=== PATIENT | male | born 1950 | race Two or more races ===

== ENCOUNTER 2021-06-30 22:27 | Inpatient (IN) | payer OTHER ==
[~2021-06-30] VITALS: Ht 188 cm; Wt 86.2 kg
--- NOTE | 2021-06-30 22:31 | NUR ---
PT BIBRA FROM HOME C/O FEVER AND "ALTERED." PLACED IN BED 8 ON MOLD BURNER AND PULSE OX. AWAITING ER MD AT BEDSIDE FOR EVAL AND ORDERS. LINE ESTABLISHED, BLOOD DRAW, AND SENT TO LAB.
[2021-06-30] MEDS ORDERED: ACETAMINOPHEN ES 500 MG TABLET ONE (22:34)
--- NOTE | 2021-06-30 22:56 | NUR ---
COLLECTED BLOOD CULTURES, SENT TO LAB.
--- NOTE | 2021-06-30 22:56 | NUR ---
AWAITING FOR PT TO PROVIDE URINE SAMPLE.
[2021-06-30] MEDS ORDERED: VANCOMYCIN 1 GM VIAL ONE (22:57)
[2021-06-30] MEDS ORDERED: CEFEPIME 1 GM VIAL ONE (22:57)
[2021-06-30] MEDS ORDERED: IV NS 0.9% 1,000 ML BAG IV ONE (23:00)
[2021-06-30] MEDS ORDERED: ACETAMINOPHEN ES 500 MG TABLET PO ONE (23:00)
[2021-06-30] MEDS ORDERED: CEFEPIME 1 GM in IV D5W 50 ML IV ONE (23:00)
[2021-06-30] MEDS ORDERED: VANCOMYCIN 1 GM in IV D5W 250 ML IV ONE (23:00)
[2021-06-30 23:07] LABS: BASOPHILS % (AUTO) 0.4 % (0.0-2.0); CALCIUM, SERUM 9.2 mg/dL (8.5-10.1); CARBON DIOXIDE 23 mmol/L (21-32); CHLORIDE 100 mmol/L (98-107); CREATININE 1.5 mg/dL (0.6-1.3); EOSINOPHILS % (AUTO) 0.1 % (0.0-6.0); GLUCOSE 114 mg/dL (74-106); HEMATOCRIT 40 % (39-51); HEMOGLOBIN 13.6 g/dL (13.5-17.5); LYMPHOCYTES # (AUTO) 0.6 K/uL (0.8-4.8); LYMPHOCYTES % (AUTO) 15.4 % (20.0-44.0); MEAN CORPUSCULAR HGB CONC 34 g/dl (31.0-36.0); MEAN CORPUSCULAR VOLUME 98 fL (80-96); MONOCYTES # (AUTO) 0.1 K/uL (0.1-1.30); MONOCYTES % (AUTO) 1.6 % (2.0-12.0); NEUTROPHILS # (AUTO) 3.3 K/uL (1.8-8.9); NEUTROPHILS % (AUTO) 82.5 % (43.0-81.0); PLATELET COUNT (AUTO) 142 K/uL (150-450); POTASSIUM 3.7 mmol/L (3.5-5.1); RED BLOOD CELL COUNT(AUTO) 4.05 MIL/uL (4.5-6.0); SODIUM SERUM 137 mmol/L (136-145); UREA NITROGEN, BLOOD 16 mg/dL (7-18)
[2021-06-30 23:12] LABS: ALANINE AMINOTRANSFERASE 29 U/L (12-78); ALBUMIN 3.9 g/dL (3.4-5.0); ALKALINE PHOSPHATASE 64 U/L (46-116); ASPARTATE AMINOTRANSFERASE 19 U/L (15-37); BILIRUBIN,DIRECT 0.2 mg/dL (0.0-0.2); BILIRUBIN,TOTAL 0.9 mg/dL (0.2-1.0); TOTAL PROTEIN, SERUM 7.2 g/dL (6.4-8.2)
[2021-06-30 23:13] LABS: ACETAMINOPHEN < 2 ug/ml (10-30)
--- NOTE | 2021-06-30 23:16 | NUR ---
LACTIC 2.7
[2021-06-30 23:18] LABS: MAGNESIUM 1.6 mg/dL (1.8-2.4)
[2021-06-30] MEDS ORDERED: ENOXAPARIN SODIUM 80 MG/0.8 ML DISP.SYRIN SQ ONE ×2 (23:19→23:30)
[2021-06-30] MEDS ORDERED: BENZOIN COMPOUND TINCT 60 ML BOTTLE ONE (23:22)
[2021-06-30] MEDS ORDERED: ENOXAPARIN SODIUM 60 MG/0.6 ML DISP.SYRIN SQ ONE (23:25)
[2021-06-30] MEDS ORDERED: ENOXAPARIN SODIUM 30 MG/0.3 ML DISP.SYRIN ONE (23:25)
[2021-06-30 23:29] LABS: SERUM AMMONIA 16 umol/L (11-32)
[2021-06-30 23:34] LABS: BILIRUBIN,URINE Negative (NEGATIVE); COLOR,URINE YELLOW (YELLOW); LEUKOCYTE ESTERASE ,URINE Large (NEGATIVE); NITRITE, URINE Negative (NEGATIVE); PROTEIN,URINE Trace mg/dl (NEGATIVE); UGLUCOSE Negative (NEGATIVE); UROBILINOGEN,URINE 0.2 EU/dL (0.2)
[2021-06-30 23:41] LABS: THYROID STIMULATING HORMONE 0.996 uIU/mL (0.358-3.74)
[2021-06-30 23:43] LABS: BACTERIA,URINE Moderate /HPF (None Seen); WBC,URINE 81-100 /HPF (0-3)
[2021-06-30 23:44] LABS: SQUAMOUS EPITHELIAL CELL,UR Few /HPF (None Seen)
[2021-06-30 23:55] LABS: ALCOHOL, BLOOD < 3 mg/dL (0-0)
[2021-07-01] VITALS (67 sets, daily range): BP systolic 78–168; BP diastolic 43–94
[2021-07-01] MEDS ORDERED: IV NS 0.9% 2,000 ML IV ONE
[2021-07-01] MEDS ORDERED: ENOXAPARIN SODIUM 60 MG/0.6 ML DISP.SYRIN SQ ONE
--- NOTE | 2021-07-01 00:35 | NUR ---
TROPONIN 2.381
[2021-07-01] MEDS ORDERED: NOREPINEPHRINE 4 MG/4 ML AMPUL IV ONE (00:49)
[2021-07-01] MEDS ORDERED: NOREPINEPHRINE 8 MG in IV NS 0.9% 250 ML IV ONE (01:00)
[2021-07-01] MEDS ORDERED: OXYC-128 PO ×2 (01:19)
[2021-07-01] MEDS ORDERED: TRAZ-257 PO (01:19)
[2021-07-01] MEDS ORDERED: NAPR-1009 PO (01:19)
[2021-07-01] MEDS ORDERED: LISI-768 PO (01:19)
[2021-07-01] MEDS ORDERED: BUPR100T6 PO (01:19)
[2021-07-01] MEDS ORDERED: CEFP100T9 PO (01:19)
[2021-07-01] MEDS ORDERED: CYAN-51 PO (01:19)
[2021-07-01] MEDS ORDERED: ASPI-1169 PO (01:19)
[2021-07-01] MEDS ORDERED: BUSP10TA3 PO (01:19)
[2021-07-01] MEDS ORDERED: ROSU10TA2 PO (01:19)
--- NOTE | 2021-07-01 01:28 | NUR ---
SPOKE TO THE PT'S DAUGHTER AND , UPDATED THEM WITH PLAN OF CARE. AWARE PT WILL BE STAYING IN [facility] ICU.
--- NOTE | 2021-07-01 01:29 | NUR ---
PT REMAINS ON LOG BRANDER AND PULSE OX. DENIES ANY PAIN. BP IMPROVING.
--- NOTE | 2021-07-01 01:37 | NUR ---
LUIS LEONG AT BEDSIDE FOR CENTRAL LINE PLACEMENT.
--- NOTE | 2021-07-01 02:07 | NUR ---
REPORT GIVEN TO RN FOR DEANDRA. PT WILL BE TRANSFERED.
--- NOTE | 2021-07-01 02:40 | NUR ---
SUMAN ALONZO DNP OKAY WITH PT TO BE BROUGHT TO ICU. PT WILL BE TRANSFERED.
--- NOTE | 2021-07-01 02:45 | NUR ---
RECEIVED PT FROM ER VIA [facility] ON ROOM AIR NO SIGN OF RESPIRATORY DISTRESS, PT IS AWAKE AA/O X4, SAFELY TRANSFER FROM RPECK TO BED PT ABLE TO HELP IN TRANSFERRING, HOOKED TO MONITOR WITH READING SINUS RHYTHM V/S CHECKED AND RECORDED, HEAD TO TOE ASSESSMENT DONE ADMISSION ASSESSMENT DONE, PT WISH TO BE FULL CODE, PT HAVE RIJ 3L CATHETER WITH ONGOING LEVOPHED @ 0.3 MCG/KG/MIN PT HAVE RAC#20 AND LFA#20 IV, PATENT AND FLUSHED, BED ON LOWEST POSITION AND LOCKED SIDE RAILS U X2 CALL LIGHT WITHIN REACH WILL CONT TO MONITOR THE PT
[2021-07-01] MEDS: NOREPINEPHRINE 8 MG in IV NS 0.9% 242 ML IV PRN ×2 (03:00→05:55)
[2021-07-01] MEDS ORDERED: ACETAMINOPHEN 325 MG TABLET PO PRN (03:30)
[2021-07-01] MEDS ORDERED: ZOLPIDEM TARTRATE 5 MG TABLET PO PRN (03:30)
[2021-07-01] MEDS ORDERED: Z GUARD REMEDY 2 OZ OINT TP PRN (03:30)
[2021-07-01] MEDS ORDERED: NOREPINEPHRINE 8 MG in IV NS 0.9% 242 ML IV PRN (03:30)
[2021-07-01] MEDS ORDERED: ONDANSETRON HCL/PF 4 MG/2 ML VIAL IVP PRN (03:30)
[2021-07-01] MEDS ORDERED: TRAZODONE 50 MG TABLET PO PRN (03:30)
[2021-07-01] MEDS: IV NS 0.9% 1,000 ML IV PRN ×2 (03:51→16:30)
[2021-07-01 04:19] LABS: BASOPHILS % (AUTO) 0.1 % (0.0-2.0); HEMATOCRIT 37 % (39-51); HEMOGLOBIN 12.2 g/dL (13.5-17.5); LYMPHOCYTES # (AUTO) 0.9 K/uL (0.8-4.8); LYMPHOCYTES % (AUTO) 2.8 % (20.0-44.0); MEAN CORPUSCULAR HGB CONC 33 g/dl (31.0-36.0); MEAN CORPUSCULAR VOLUME 100 fL (80-96); MONOCYTES # (AUTO) 1.8 K/uL (0.1-1.30); MONOCYTES % (AUTO) 5.6 % (2.0-12.0); NEUTROPHILS # (AUTO) 29.5 K/uL (1.8-8.9); NEUTROPHILS % (AUTO) 91.5 % (43.0-81.0); PLATELET COUNT (AUTO) 151 K/uL (150-450); RED BLOOD CELL COUNT(AUTO) 3.73 MIL/uL (4.5-6.0)
[2021-07-01 04:27] LABS: WHITE BLOOD COUNT (AUTO) 32.3 K/uL (4.3-11.0)
--- NOTE | 2021-07-01 04:34 | NUR ---
HEPARIN DRIP NOT STARTED YET BECAUSSE LOVENOX WAS ADMINISTERED ON 06/30 @ 8864 AND PER PROTOCOL HEPARIN DRIP CAN BE STARTED 12HR AFTER LOVENOX ADMINISTRATION PHARMACY CODI AND CHARGE NURSE AWARE
[2021-07-01 04:39] LABS: BAND % (MANUAL) 23 % (0.0-5.0); NEUTROPHILS % (MANUAL) 71 (42-76)
[2021-07-01 04:40] LABS: LYMPHOCYTES % (MANUAL) 3 % (16-48); MONOCYTES % (MANUAL) 3 % (0-11.0)
[2021-07-01 04:54] LABS: THYROID STIMULATING HORMONE 0.515 uIU/mL (0.358-3.74)
[2021-07-01 04:55] LABS: ABG BASE EXCESS -2.5 mmol/L; ABG OXYGEN SATURATION 96.6 % (92.0-98.5); ABG PCO2 35.4 mmHg (35.0-45.0); ABG PH 7.404 (7.350-7.450); ABG PO2 80.5 mmHg (75.0-100.0); AaDO2 26.8 mmHg; COHb 0.8 % (0.5-1.5); MetHb 0.2 % (0.0-1.5); O2Hb 95.6 % (94.0-97.0); SITE, ABG Right Radial; VENT MODE, BG room air
[2021-07-01 05:22] LABS: ALANINE AMINOTRANSFERASE 31 U/L (12-78); ALBUMIN 3.1 g/dL (3.4-5.0); ALKALINE PHOSPHATASE 47 U/L (46-116); ASPARTATE AMINOTRANSFERASE 30 U/L (15-37); BILIRUBIN,TOTAL 0.6 mg/dL (0.2-1.0); CALCIUM, SERUM 8.2 mg/dL (8.5-10.1); CARBON DIOXIDE 20 mmol/L (21-32); CHLORIDE 106 mmol/L (98-107); CREATININE 1.4 mg/dL (0.6-1.3); GLUCOSE 150 mg/dL (74-106); MAGNESIUM 1.8 mg/dL (1.8-2.4); PHOSPHORUS 1.5 mg/dL (2.5-4.9); POTASSIUM 3.4 mmol/L (3.5-5.1); SODIUM SERUM 137 mmol/L (136-145); TOTAL PROTEIN, SERUM 5.9 g/dL (6.4-8.2); UREA NITROGEN, BLOOD 18 mg/dL (7-18)
[2021-07-01] MEDS ORDERED: NOREPINEPHRINE 8MG/250ML RTU 250 ML IV ONE (05:51)
--- NOTE | 2021-07-01 07:19 | NUR ---
PT ON BED ASLEEP EASY TO WAKE UP STILL ON ROOM AIR SPO2 97% NO SIGN OF RESPIRATORY DISTRESS, NO CHEST PAIN COMPLAINT, STILL ON LEVO @0.2 MCG/KG/MIN AND NS @ 100ML/HR INFUSING WELL, ALL NEEDS ATTENDED BED ON LOWEST POSITION AND LOCKED SIDE RAILS UP X2 CALL LIGHT WITHIN REACH WILL ENDORSED TO AM SHIFT NURSE
--- NOTE | 2021-07-01 07:30 | NUR ---
RN NOTES PT FOUND SEMI FOWLERS POSITION DISPLAYING NO S/S OF DISTRESS, PT ENDORSES NO PAIN AND IS BREATHING EVEN AND UNLABORED ON RA. PT IS A&OX4, CALM AND COOPERATIVE. R IJ TRIALYSIS PATIENT AND INTACT. PT VERBALIZED UNDERSTANDING OF HEPARIN TREATMENT LATER IN SHIFT. VSS, RN WILL MONITOR AND TREAT THROUGHOUT SHIFT. SAFETY MEASURES IN PLACE, BED LOCKED AND IN LOWEST POSITION, SIDE RAILS UPX2, CALL LIGHT WITHIN REACH, PT INSTRUCTED TO CALL FOR ASSISTANCE.
[2021-07-01] MEDS: PANTOPRAZOLE 40 MG VIAL IV SCH (08:49)
[2021-07-01] MEDS: ASPIRIN 81 MG TAB.CHEW PO SCH (08:50)
[2021-07-01] MEDS: busPIRone 5 MG TABLET PO SCH ×3 (08:51→17:21)
[2021-07-01] MEDS ORDERED: CEFEPIME 1 GM VIAL IM SCH (09:00)
[2021-07-01] MEDS: CEFEPIME 2 GM in IV D5W 100 ML IV SCH (09:39)
[2021-07-01] MEDS ORDERED: POTASSIUM PHOSPHATE MM 15 MMOL in IV NS 0.9% 250 ML IV SCH (10:30)
[2021-07-01] MEDS: VANCOMYCIN HCL 0.75 GM in IV D5W 250 ML IV SCH ×3 (10:38→23:11)
[2021-07-01] MEDS ORDERED: HEPARIN INFUSION/D5W 500 ML IV PRN (11:30)
[2021-07-01] MEDS ORDERED: HEPARIN SODIUM, PORCINE 5000 UNITS/1 ML VIAL IV ONE (11:30)
--- NOTE | 2021-07-01 15:50 | NUR ---
CRITICAL LAB & MD COMMUNICATION RODRICK FROM LAB CALLED TO REPORT PT HAD GRAM NEGATIVE RODS IN BLOOD. RN ACKNOWLEDGED AND READ BACK FINDING TO CONFIRM. RN THEN INFORMED MD. ACKNOWLEDGED AND HAD NO NEW ORDERS.
[2021-07-01] MEDS: TAMSULOSIN 0.4 MG CAP.SR.24H PO SCH ×2 (17:21→21:18)
[2021-07-01] MEDS: METOPROLOL TARTRATE 25 MG TABLET PO SCH ×2 (17:27→21:00)
--- NOTE | 2021-07-01 19:30 | NUR ---
RN NOTES PT FOUND SEMI FOWLERS POSITION DISPLAYING NO S/S OF DISTRESS, PT ENDORSES NO PAIN AND IS BREATHING EVEN AND UNLABORED ON RA. PT IS A&OX4, CALM AND COOPERATIVE. R IJ TRIALYSIS PATIENT AND INTACT. PT VERBALIZED UNDERSTANDING OF HEPARIN TREATMENT LATER IN SHIFT. VSS, SBAR AND REPORT GIVEN TO GLOVE PRESSER. SAFETY MEASURES IN PLACE, BED LOCKED AND IN LOWEST POSITION, SIDE RAILS UPX2, CALL LIGHT WITHIN REACH, PT INSTRUCTED TO CALL FOR ASSISTANCE. PT ENDORSED IN STABLE CONDITION FOR DEANDRA. ALL QUESTIONS ANSWERED.
--- NOTE | 2021-07-01 19:45 | NUR ---
ICU/SEGMENTAL PAVER INSTALLER RECIEVED REPORT FROM DAY SHIFT NURSE. SEE FLOWSHEET FOR ASSESSMENT, THERE ARE NO SKIN ISSUES THAT ARE ADDRESSED ON THE FLOWSHEET. THERE IS A MAINTENANCE IV'S WHICH IS ADDRESSED. PT TURNS SELF AND REPOSITIONS SELF FOR COMFORT AND CARE. WILL CONTINUE TO MONITOR THIS PT. NO ACUTE DISTRESS SEEN AT THIS TIME.
--- NOTE | 2021-07-01 20:10 | NUR ---
ICU/AUTOMOBILE UPHOLSTERER APPRENTICE THERE IS A ORDER FROM DR SOARES TO D/C THE HEPARIN DRIP ON THIS PT. THIS WAS TAKEN DOWN.
[2021-07-01] MEDS ORDERED: ENOXAPARIN SODIUM 40 MG/0.4 ML DISP.SYRIN SQ SCH (21:00)
[2021-07-01] MEDS: ATORVASTATIN 40 MG TABLET PO SCH (21:18)
--- NOTE | 2021-07-01 23:30 | NUR ---
ICU/VENTILATING EQUIPMENT INSTALLER PT WAS GIVEN PRN TRAZODONE PER REQUEST FOR SLEEP. CALL LIGHT WITHIN REACH.
[2021-07-02] VITALS (25 sets, daily range): BP systolic 74–146; BP diastolic 45–74
--- NOTE | 2021-07-02 00:28 | NUR ---
ICU/BACK SHOE OPERATOR REPORT GIVEN TO NIGHT MARY QUINONES FOR CONTINUITY OF CARE.
--- NOTE | 2021-07-02 00:30 | NUR ---
RN NOTE RECEIVED PATIENT IN BED, A/OX4. ON 2L/MIN VIA NASAL CANNULA. RESPIRATIONS ARE EVEN AND UNLABORED. NO S/S SOB NOTED. NO C/O PAIN AT THIS TIME. TELE MONITOR READS SINUS RHYTHM HR 77. IV ACCESS IN RIJ RUNNING NS@100ML/HR. LO CATHETER PRESENT, DRAINING TO GRAVITY, URINE US YELLOW. BED IS LOW AND LOCKED, HOB ELEVATED IN SEMI FOWLERS, SIDE RIAL SUP X2, CALL LIGHT WITHIN REACH.
[2021-07-02] MEDS: IV NS 0.9% 1,000 ML IV PRN ×3 (01:41→16:29)
[2021-07-02 04:29] LABS: CALCIUM, SERUM 7.3 mg/dL (8.5-10.1); CARBON DIOXIDE 20 mmol/L (21-32); CHLORIDE 106 mmol/L (98-107); CREATININE 1.2 mg/dL (0.6-1.3); GLUCOSE 101 mg/dL (74-106); POTASSIUM 3.4 mmol/L (3.5-5.1); SODIUM SERUM 135 mmol/L (136-145); UREA NITROGEN, BLOOD 14 mg/dL (7-18)
--- NOTE | 2021-07-02 07:26 | NUR ---
RN NOTE PATIENT RESTING IN BED, A/OX4. REMAINS ON 2L/MIN VIA NASAL CANNULA. NO RESP DISTRESS. NO C/O PAIN. NO DISTRESS. TELE MONITOR READS SINUS RHYTHM. IV MAINTAINED IN RIJ RUNNING NS@100ML/HR. LO CATHETER OUTPUT 600ML. BED REMAINS LOW AND LOCKED, HOB ELEVATED IN SEMI FOWLERS, SIDE RIAL SUP X2, CALL LIGHT WITHIN REACH. WILL ENDORSE TO ONCOMING SHIFT.
--- NOTE | 2021-07-02 07:30 | NUR ---
RN NOTES PT FOUND HIGH BHAK[place]'S POSITION DISPLAYING NO S/S OF DISTRESS, PT ENDORSES NO PAIN AND IS BREATHING EVEN AND UNLABORED ON RA. R IJ TRIALYSIS IS PATIENT AND INTACT. LO CATH BELOW PATIENT DRAINING BY GRAVITY. VSS, RN WILL TREAT AND MONITOR THROUGHOUT SHIFT. SAFETY MEASURES IN PLACE, BED LOCKED AND IN LOWEST POSITION, SIDE RAILS UPX2, CALL LIGHT WITHIN REACH, PT INSTRUCTED TO CALL FOR ASSISTANCE.
[2021-07-02] MEDS: CEFEPIME 2 GM in IV D5W 100 ML IV SCH (08:13)
[2021-07-02] MEDS: busPIRone 5 MG TABLET PO SCH ×3 (08:13→16:37)
[2021-07-02] MEDS: PANTOPRAZOLE 40 MG VIAL IV SCH (08:13)
[2021-07-02] MEDS: ASPIRIN 81 MG TAB.CHEW PO SCH (08:13)
--- NOTE | 2021-07-02 08:20 | NUR ---
RN NOTE PT OFF FLOOR FOR CT. RN ACCOMPANIED WITH BEDSIDE MONITORING.
[2021-07-02] MEDS ORDERED: IOHEXOL-350 100 ML VIAL IV ONE (08:47)
[2021-07-02] MEDS ORDERED: CT SWABBABLE VALVE TRANS SET 1 EA INFUS.SET MC ONE (08:48)
[2021-07-02] MEDS ORDERED: IV NS 0.9% 250 ML IV ONE (08:48)
[2021-07-02] MEDS ORDERED: TAMSULOSIN 0.4 MG CAP.SR.24H PO SCH (09:00)
[2021-07-02] MEDS: METOPROLOL TARTRATE 25 MG TABLET PO SCH ×2 (09:00→21:52)
--- NOTE | 2021-07-02 09:10 | NUR ---
RN NOTE RN AND PT RETURNED FROM IMAGING. VSS.
[2021-07-02] MEDS: POTASSIUM CL. PREMIX PERIPHER. 50 ML IV SCH ×2 (09:26→10:59)
[2021-07-02 10:23] LABS: BASOPHILS % (AUTO) 0.2 % (0.0-2.0); EOSINOPHILS % (AUTO) 0.1 % (0.0-6.0); HEMATOCRIT 31 % (39-51); HEMOGLOBIN 10.4 g/dL (13.5-17.5); LYMPHOCYTES # (AUTO) 0.4 K/uL (0.8-4.8); LYMPHOCYTES % (AUTO) 4.2 % (20.0-44.0); MEAN CORPUSCULAR HGB CONC 34 g/dl (31.0-36.0); MEAN CORPUSCULAR VOLUME 100 fL (80-96); MONOCYTES # (AUTO) 0.5 K/uL (0.1-1.30); MONOCYTES % (AUTO) 4.6 % (2.0-12.0); NEUTROPHILS # (AUTO) 9.4 K/uL (1.8-8.9); NEUTROPHILS % (AUTO) 90.9 % (43.0-81.0); PLATELET COUNT (AUTO) 91 K/uL (150-450); RED BLOOD CELL COUNT(AUTO) 3.07 MIL/uL (4.5-6.0); WHITE BLOOD COUNT (AUTO) 10.3 K/uL (4.3-11.0)
[2021-07-02 11:12] LABS: CALCIUM, SERUM 7.2 mg/dL (8.5-10.1); CREATININE 1.1 mg/dL (0.6-1.3); POTASSIUM 3.4 mmol/L (3.5-5.1)
[2021-07-02 11:41] LABS: LYMPHOCYTES % (MANUAL) 2 % (16-48); MONOCYTES % (MANUAL) 6 % (0-11.0); NEUTROPHILS % (MANUAL) 92 (42-76)
--- NOTE | 2021-07-02 15:00 | NUR ---
TRANSFER TO ANOTHER UNIT PT TRANSPORTED TO [facility] VIA WHEEL CHAIR, PT AT THE TIME IS A&OX4, ENDORSING NO PAIN AND BREATHING EVEN AND UNLABORED ON RA. R IJ TRIALYSIS IS PATIENT AND INTACT, DRESSING JUST CHANGED, R AC 18G IS REINFORCED WITH KERLIX. LO CATH IS BELOW PT, DRAINING BY GRAVITY. PT WAS ABLE TO TRANSFER FROM BED TO W/C BACK TO BED. SBAR AND REPORT GIVEN TO MARY BECERRA. ALL QUESTIONS ANSWERED. PT ENDORSED IN STABLE CONDITION FOR DEANDRA.
--- NOTE | 2021-07-02 15:19 | NUR ---
MS RN NOTES: RECEIVED PT FROM ICU WITH DULCE HERNANDEZ VIA WHEELCHAIR,ALERT/ORIENTED X 4.DENIES PAIN AND DISCOMFORT AT THIS TIME AND NOT IN ANY DISTRESS.MADE COMFORTABLE IN BED.RIGHT AC PERIPHERAL LINE GAUGE 18 NOTED,WITH INDWELLING LO CATHETER WITH YELLOW URINE OUTPUT. ON IV MAXIPIME FOR UTI.AFEBRILE AND VITAL SIGNS WNL.WE WILL CONTINUE TO MONITOR.
--- NOTE | 2021-07-02 18:50 | NUR ---
MS/RN CLOSING NOTES PATIENT IS ON BED AWAKE ALERT AND ORIENTED X4. PATIENT IS ON ROOM AIR. PATIENT IN NO APPARENT RESPIRATORY DISTRESS NOTED. NO COMPLAINED OF PAIN NOTED AT THIS TIME. IV ACCESS AT RIGHT IJ TLC AND RIGHT AC # 18 G WITH IV FLUID OF NS 1L AT 100ML/HOUR ON AND INFUSING WELL. SAFETY PRECAUTIONS WAS IN PLACED. BED IN LOWEST POSITION AND LOCKED. CALL LIGHT WITHIN REACH. WILL ENDORSED TO HEEL SPRAYER FIRST FOR DEANDRA.
[2021-07-02] MEDS: ATORVASTATIN 40 MG TABLET PO SCH (21:52)
[2021-07-02] MEDS: TAMSULOSIN 0.4 MG CAP.SR.24H PO SCH (21:52)
[2021-07-03] MEDS: IV NS 0.9% 1,000 ML IV PRN (02:21)
--- NOTE | 2021-07-03 06:25 | NUR ---
MS RN NOTES AWAKE & RESPONSIVE. NOT IN ANY DISTRESS. NO SOB NOTED. DENIES ANY PAIN OR DISCOMFORT AT THIS TIME. WITH IVF INFUSING WELL. MONITORED ACCORDINGLY. CALL LIGHT WITHIN REACH. BED IN LOWEST POSITION. SR UP X 2 FOR SAFETY. WILL ENDORSE TO NEXT SHIFT.
[2021-07-03 07:01] LABS: CALCIUM, SERUM 7.6 mg/dL (8.5-10.1); CREATININE 0.9 mg/dL (0.6-1.3); POTASSIUM 3.6 mmol/L (3.5-5.1)
--- NOTE | 2021-07-03 07:46 | NUR ---
MS RN OPENING NOTES RECEIVED PATIENT IN BED, AWAKE, A/O X4. PATIENT ON ROOM AIR WITH ON AND OFF O2 FOR COMFORT. BREATHING EVEN AND UNLABORED; NO SOB NOTED AT THIS TIME. NO COMPLAINS OF PAIN. PICC LINE AT [facility] PRESENT AND INTACT RUNNING NS @ 100 MLS/HR. LO CATH PRESENT. SAFETY PRECAUTIONS IN PLACE; BED IN LOW POSITION AND LOCKED, RAILS UP x2, CALL LIGHT WITHIN REACH. WILL CONTINUE TO MONITOR PATIENT.
[2021-07-03] MEDS: PANTOPRAZOLE 40 MG TABLET.DR PO SCH (08:23)
[2021-07-03] MEDS: ASPIRIN 81 MG TAB.CHEW PO SCH (08:24)
[2021-07-03] MEDS: METOPROLOL TARTRATE 25 MG TABLET PO SCH ×2 (08:24→21:10)
[2021-07-03] MEDS: busPIRone 5 MG TABLET PO SCH ×3 (08:24→16:13)
[2021-07-03] MEDS: CEFEPIME 2 GM in IV D5W 100 ML IV SCH (08:50)
--- NOTE | 2021-07-03 09:23 | NUR ---
MS RN NOTES PATIENT REQUESTING ATIVAN. PER PATIENT HE TAKES LORAZEPAM 0.5 PO AT HOME AND HE DID PUT IT IN HIS MEDICATION LIST. MESSAGED SUMAN ALONZO REGARDING THE MATTER. DOCTOR ORDERED ATIVAN 0.5 PO PRN DAILY. ORDERED READ BACK. WILL FOLLOW THROUGH ORDER.
--- NOTE | 2021-07-03 18:54 | NUR ---
MS RN CLOSING NOTES PATIENT REMAINS IN BED, AWAKE, A/O X4. PATIENT ON ROOM AIR WITH ON AND OFF O2 FOR COMFORT. BREATHING EVEN AND UNLABORED; NO SOB NOTED DURING SHIFT. NO COMPLAINS OF PAIN. PICC LINE AT [facility] PRESENT AND INTACT RUNNING NS @ 100 MLS/HR. ALL NEEDS ATTENDED DURING THE DAY. SAFETY PRECAUTIONS IN PLACE; BED IN LOW POSITION AND LOCKED, RAILS UP x2, CALL LIGHT WITHIN REACH. WILL ENDORSE TO ACCOUNT EXECUTIVE HEALTHCARE NURSE.
--- NOTE | 2021-07-03 19:34 | NUR ---
MS MARY OPENING RECEIVED PATIENT IN BED. A/OX4. READING MAGAZINE. PATIENT CURRENTLY IN 2LPM OF O2 VIA NC, TOLERATING WELL NO S/S OF APPARENT DISTRESS. NO C/O PAIN. [facility] PICC RUNNING NS @100 ML/HR. SAFETY IN PLACE. WILL CONT. TO MONITOR.
[2021-07-03 20:00] VITALS: BP 140/81
[2021-07-03] MEDS: TAMSULOSIN 0.4 MG CAP.SR.24H PO SCH (21:10)
[2021-07-03] MEDS: ATORVASTATIN 40 MG TABLET PO SCH (21:10)
[2021-07-03] MEDS ORDERED: LORAZEPAM 0.5 MG TABLET PO PRN (21:30)
[2021-07-04] MEDS: IV NS 0.9% 1,000 ML IV PRN (03:36)
--- NOTE | 2021-07-04 06:23 | NUR ---
MS RN NOTE BLADDER SCAN SHOWED 279 ML.
[2021-07-04 06:48] LABS: CALCIUM, SERUM 8.1 mg/dL (8.5-10.1); CREATININE 0.8 mg/dL (0.6-1.3); POTASSIUM 3.6 mmol/L (3.5-5.1)
--- NOTE | 2021-07-04 07:32 | NUR ---
MS RN OPENING NOTES RECEIVED PATIENT IN BED, RESTING. A/O X4. STABLE ON ROOM AIR - USES 2L NASAL CANNULA PRN FOR COMFORT. NO SOB NOTED. NO DISTRESS/DISCOMFORT NOTED. IV ACCESS TO RIGHT IJ - PICC LINE - RUNNING NS @ 100 MLS/HR. SAFETY MEASURES IN PLACE. CALL LIGHT WITHIN REACH. WILL CONTINUE TO MONITOR.
[2021-07-04 08:00] VITALS: BP 144/77
[2021-07-04] MEDS: busPIRone 5 MG TABLET PO SCH (08:05)
[2021-07-04] MEDS: ASPIRIN 81 MG TAB.CHEW PO SCH (08:05)
[2021-07-04] MEDS: PANTOPRAZOLE 40 MG TABLET.DR PO SCH (08:05)
[2021-07-04 08:08] VITALS: BP 144/77
[2021-07-04] MEDS: METOPROLOL TARTRATE 25 MG TABLET PO SCH (08:08)
[2021-07-04] MEDS: CEFEPIME 2 GM in IV D5W 100 ML IV SCH (08:11)
--- NOTE | 2021-07-04 12:08 | NUR ---
MS RECORDS MANAGEMENT ASSOCIATE NOTE PATIENT DISCHARGED VIA PRIVATE CAR @ 1150. STABLE, A/O X4. STABLE ON ROOM AIR. NO SOB NOTED. NO DISTRESS/DISCOMFORT NOTED. IV ACCESS TO RIGHT IJ REMOVED. PRESSURE DRESSING APPLIED. AT BEDSIDE. EXITCARE AND DISCHARGE INSTRUCTIONS GIVEN TO PATIENT. PATIENT VERBALIZED UNDERSTANDING. PRESCRIPTION GIVEN TO . WRISTBAND REMOVED. PATIENT ACCOMPANIED TO LOBBY VIA WHEELCHAIR BY MYSELF. MD AND CHARGE NURSE AWARE OF DISCHARGE.
[2021-07-04] MEDS ORDERED: CEFEPIME 2 GM in IV D5W 100 ML IV SCH (21:00)
== END 2021-07-04 12:00 | disposition home or self-care (01) | DRG 871 ==
LOC: EDBD 22:28 → ER 22:28 → ICU 07-01 01:10 → MED 07-02 15:21
PROVIDERS: ADMIT Nurse Practitioner Acute Care; ATTEND Internal Medicine
DX: A41.50 Gram-negative sepsis, unspecified (principal); G93.41 Metabolic encephalopathy; I21.4 Non-ST elevation (NSTEMI) myocardial infarction; R65.21 Severe sepsis with septic shock; N17.0 Acute kidney failure with tubular necrosis; N39.0 Urinary tract infection, site not specified; D69.6 Thrombocytopenia, unspecified; I25.10 Atherosclerotic heart disease of native coronary artery without angina pectoris; Z20.822 Contact with and (suspected) exposure to COVID-19; I10 Essential (primary) hypertension; E78.5 Hyperlipidemia, unspecified; Z79.82 Long term (current) use of aspirin; Z79.899 Other long term (current) drug therapy; Z79.891 Long term (current) use of opiate analgesic; F32.A Depression, unspecified; Z96.652 Presence of left artificial knee joint; D72.819 Decreased white blood cell count, unspecified; E87.6 Hypokalemia; E83.39 Other disorders of phosphorus metabolism; N40.1 Benign prostatic hyperplasia with lower urinary tract symptoms; R33.8 Other retention of urine
CPT/HCPCS: 36415; 36600; 70450-TC; 71045-TC; 75574; 76856-TC; 80048-TC; 80053-TC; 80076-TC; 80202-TC; 81001; 82140-TC; 82550-TC; 83605-TC; 83735-TC; 83880; 84100-TC; 84443-TC; 84484-TC; 85025-TC; 85610-TC; 85730-TC; 87040-TC; 87081-TC; 87086-TC; 87186-TC; 93307-TC; C9113; C9803; G0378; G0480; J0692; J1644; J1650; J3370; J3480; J3490; J7030; J7042; J7050; J7060; Q9967